=== PATIENT | female | born 1975 | race Two or more races ===

== ENCOUNTER 2017-08-21 23:15 | Emergency (ER) | payer MEDICAID ==
[~2017-08-21] VITALS: Ht 165.1 cm; Wt 85.7 kg
[2017-08-22 01:01] VITALS: BP 166/93
[2017-08-22 01:40] LABS: Mean Corpuscular Hemoglobin 20.2 pg (28.0-32.0); Mean Corpuscular Hgb Conc. 30.9 g/dL (32.0-36.0); Mean Corpuscular Volume 65.6 fL (80.0-100.0); Platelet Count (auto) 406 10^3/uL (140-450); White Blood Cell 14.5 10^3/uL (4.4-10.8)
[2017-08-22 01:42] LABS: Basophils # (auto) 0.1 uL; Basophils % (auto) 0.6 % (0.0-2.0); Eosinophils # (auto) 0.1 uL; Eosinophils % (auto) 0.5 % (0.0-7.0); Lymphocytes # (auto) 2.2 uL; Lymphocytes % (auto) 15.1 % (10.0-50.0); Monocytes # (auto) 0.7 uL; Monocytes % (auto) 4.9 % (0.0-12.0); Neutrophils # (auto) 11.4 uL; Neutrophils % (auto) 78.9 % (37.0-80.0); Nucleated Red Blood Cells % 0.3 %; Red Blood Cells 6.41 10^6/uL (4.0-5.20); Red Cell Distribution Width 17.8 % (11.8-14.3)
[2017-08-22 02:00] LABS: Bilirubin, Total 0.9 mg/dL (0.2-1.0); Total Protein 9.3 g/dL (6.4-8.2)
== END 2017-08-22 08:56 | disposition left against medical advice (07) ==
LOC: ER 23:17
DX: R11.2 Nausea with vomiting, unspecified (principal); Z53.21 Procedure and treatment not carried out due to patient leaving prior to being seen by health care provider
CPT/HCPCS: 36415; 80053; 82962; 85025

== ENCOUNTER 2018-09-14 13:20 | Emergency (ER) | payer MEDICAID ==
[~2018-09-14] VITALS: Ht 167.6 cm; Wt 74.8 kg
[2018-09-14 13:25] VITALS: BP 177/82
== END 2018-09-14 14:17 | disposition home or self-care (01) ==
LOC: ER 13:31
DX: S60.521A Blister (nonthermal) of right hand, initial encounter (principal); E11.9 Type 2 diabetes mellitus without complications; I10 Essential (primary) hypertension; F17.210 Nicotine dependence, cigarettes, uncomplicated; W22.8XXA Striking against or struck by other objects, initial encounter; Y93.89 Activity, other specified; Y92.092 Bedroom in other non-institutional residence as the place of occurrence of the external cause; Y99.8 Other external cause status
CPT/HCPCS: 10060

== ENCOUNTER 2018-10-29 15:38 | Inpatient (IN) | payer MEDICAID ==
[~2018-10-29] VITALS: Ht 165.1 cm; Wt 96.4 kg
[2018-10-29] MEDS ORDERED: SODIUM CHLORIDE 0.9% 500 ML IVB ONE (16:09)
[2018-10-29] MEDS ORDERED: ONDANSETRON HCL 4 MG/2 ML VIAL IV ONE (16:15)
[2018-10-29] MEDS ORDERED: MORPHINE SULFATE 4 MG/ML SYR/VIAL IV ONE (16:15)
[2018-10-29 16:33] LABS: Basophils # (auto) 0 uL; Eosinophils # (auto) 0.1 uL; Neutrophils # (auto) 6.6 uL
[2018-10-29 16:35] LABS: Basophils % (auto) 0.4 % (0.0-2.0); Hematocrit 33.6 % (36.0-46.0); Hemoglobin 10.3 g/dL (12.2-16.2); Lymphocytes # (auto) 1.4 uL; Lymphocytes % (auto) 16.7 % (10.0-50.0); Mean Corpuscular Hemoglobin 19.4 pg (28.0-32.0); Mean Corpuscular Hgb Conc. 30.6 g/dL (32.0-36.0); Mean Corpuscular Volume 63.5 fL (80.0-100.0); Monocytes # (auto) 0.5 uL; Monocytes % (auto) 6.1 % (0.0-12.0); Neutrophils % (auto) 75.8 % (37.0-80.0); Nucleated Red Blood Cells % 0.1 %; Platelet Count (auto) 294 10^3/uL (140-450); Red Blood Cells 5.28 10^6/uL (4.0-5.20); Red Cell Distribution Width 18.9 % (11.8-14.3); White Blood Cell 8.7 10^3/uL (4.4-10.8)
[2018-10-29 18:45] LABS: Alanine Aminotransferase 26 U/L (13-56); Alkaline Phosphatase 111 U/L (45-117); Anion Gap 8 (5-15); Aspartate Aminotransferase 15 U/L (15-37); BUN/Creatinine Ratio 15.7; Blood Urea Nitrogen 11 mg/dL (7-18); Calcium 8.9 mg/dL (8.5-10.1); Carbon Dioxide 22 mmol/L (21-32); Chloride 105 mmol/L (98-107); GFR African American 119 mL/min; GFR Non-African American 98 mL/min; Glucose 214 mg/dL (74-106); Sodium 135 mmol/L (136-145)
[2018-10-29 18:46] LABS: Albumin 3.5 g/dL (3.4-5.0); Amylase 48 U/L (25-115); Bilirubin, Total 0.6 mg/dL (0.2-1.0); Lipase 105 U/L (73-393); Magnesium 2.1 mg/dL (1.6-2.6); Total Protein 8.2 g/dL (6.4-8.2)
[2018-10-29] MEDS ORDERED: ACETAMINOPHEN 500 MG TAB PO PRN (23:00)
[2018-10-29] MEDS ORDERED: ONDANSETRON HCL 4 MG/2 ML VIAL IV PRN (23:00)
[2018-10-29 23:39] LABS: Urine Bacteria FEW /hpf (None Seen); Urine Blood Negative /uL (Negative); Urine Mucus FEW (None Seen); Urine Specific Gravity 1.018 (1.001-1.035); Urine WBC <1 /hpf (0 - 5)
[2018-10-30] VITALS (7 sets, daily range): BP systolic 90–158; BP diastolic 53–79
[2018-10-30] MEDS ORDERED: ONDANSETRON HCL 4 MG/2 ML VIAL IV PRN
[2018-10-30] MEDS ORDERED: ACETAMINOPHEN 500 MG TAB PO PRN
[2018-10-30] MEDS ORDERED: cefTRIAXone 1GM/50ML D5W 50 ML IV ONE
[2018-10-30] MEDS ORDERED: HYDROcodone-ACET 5/325MG TAB PO PRN (00:15)
[2018-10-30] MEDS ORDERED: DEXTROSE (50%) 50ML SYRG IV PRN (00:15)
[2018-10-30] MEDS: SODIUM CHLORIDE 0.9% 1,000 ML IV SCH ×2 (00:15→12:51)
[2018-10-30] MEDS ORDERED: VANCOMYCIN PER PHARMACY 0 MG IV SCH (00:15)
[2018-10-30] MEDS ORDERED: VANCOMYCIN 1GM/250ML 250 ML IV ONE (01:00)
--- NOTE | 2018-10-30 02:31 | NUR ---
MS admit from [facility] admitted to tele/MS. Patient oriented to ARVIND HERNÁNDEZ, RN primary RN, unit, room, bed, and unit policies regarding patient care and visiting hours. Patient weighed by bedscale and encouraged to call if they need something. All questions and concerns addressed, patient verbalized understanding. Safety maintained with bed rails upx2, locked and in lowest position with call leal within reach.
--- NOTE | 2018-10-30 03:00 | NUR ---
MED REC Patient states she takes a medication for her kidneys, unable to recall name or dose of medication. Insulin lispro and insulin glargine pens collected, will send to pharmacy.
[2018-10-30] MEDS ORDERED: INSU100I27 SC (03:36)
[2018-10-30] MEDS ORDERED: INSU1INJ19 SC (03:36)
[2018-10-30] MEDS: InsuLIN REG 1unit/0.01ml Soln (100units/ml) SC SCH ×3 (06:31→18:13)
[2018-10-30] MEDS: ACCU-CHEK COMFORT CURVE STRIP VI SCH ×3 (06:31→18:13)
[2018-10-30 06:49] LABS: Basophils # (auto) 0 uL; Eosinophils # (auto) 0.1 uL; Lymphocytes # (auto) 1.9 uL; Lymphocytes % (auto) 27.5 % (10.0-50.0); Mean Corpuscular Hemoglobin 19.6 pg (28.0-32.0); Mean Corpuscular Hgb Conc. 30.8 g/dL (32.0-36.0); Monocytes # (auto) 0.5 uL; Neutrophils # (auto) 4.3 uL; White Blood Cell 6.8 10^3/uL (4.4-10.8)
[2018-10-30 06:52] LABS: Basophils % (auto) 0.3 % (0.0-2.0); Eosinophils % (auto) 1.7 % (0.0-7.0); Hematocrit 30.6 % (36.0-46.0); Hemoglobin 9.4 g/dL (12.2-16.2); Mean Corpuscular Volume 63.7 fL (80.0-100.0); Neutrophils % (auto) 62.5 % (37.0-80.0); Platelet Count (auto) 247 10^3/uL (140-450); Red Cell Distribution Width 19.3 % (11.8-14.3)
[2018-10-30 07:01] LABS: Albumin 2.8 g/dL (3.4-5.0); BUN/Creatinine Ratio 14.9; Calcium 7.8 mg/dL (8.5-10.1); Potassium 3.7 mmol/L (3.5-5.1)
[2018-10-30 07:04] LABS: Bilirubin, Total 0.4 mg/dL (0.2-1.0); Total Protein 6.6 g/dL (6.4-8.2)
--- NOTE | 2018-10-30 07:08 | NUR ---
Closing Shift Note Endorsed care to day shift RN Eric. Pt resting in bed, no s/s distress.
--- NOTE | 2018-10-30 07:30 | NUR ---
Opening Shift Note Assumed care of patient, awake and alert. No S/S of distress/SOB or pain. Instructed on POC and to call for assist PRN, will continue to monitor for changes Q1hr and PRN.
[2018-10-30] MEDS ORDERED: PNEUMOCOCCAL VACC POLYS 25 MCG/0.5 ML VIAL IM ONE (10:00)
[2018-10-30] MEDS ORDERED: VANCOMYCIN 1,250 MG in D5W 5% 250 ML IV SCH (13:00)
[2018-10-30 15:26] LABS: % Iron Saturation 2.7 % (15-50)
--- NOTE | 2018-10-30 18:55 | NUR ---
AMA Note [facility] states they want to leave the hospital Against Medical Advice (AMA). Patient encouraged to stay for further treatment/stabilization. Charge nurse Giovanna notified of patient's wishes. Patient advised of the risks leaving AMA. Patient verbalized understanding. Patient encouraged to return to the ER if symptoms do not improve or worsen.
[2018-10-30] MEDS ORDERED: cefTRIAXone 1GM/50ML D5W 50 ML IV SCH (22:00)
== END 2018-10-30 18:45 | disposition left against medical advice (07) | DRG 720 ==
LOC: ER 15:41 → OVERFLOW 10-30 00:02 → EAST 10-30 02:31
PROVIDERS: ADMIT Nurse Practitioner Family; ATTEND Internal Medicine
DX: A41.9 Sepsis, unspecified organism (principal); E11.21 Type 2 diabetes mellitus with diabetic nephropathy; E66.01 Morbid (severe) obesity due to excess calories; K76.0 Fatty (change of) liver, not elsewhere classified; N10 Acute pyelonephritis; D50.9 Iron deficiency anemia, unspecified; F17.210 Nicotine dependence, cigarettes, uncomplicated; E11.22 Type 2 diabetes mellitus with diabetic chronic kidney disease; N18.9 Chronic kidney disease, unspecified; Z53.21 Procedure and treatment not carried out due to patient leaving prior to being seen by health care provider; I12.9 Hypertensive chronic kidney disease with stage 1 through stage 4 chronic kidney disease, or unspecified chronic kidney disease; N92.0 Excessive and frequent menstruation with regular cycle; Z98.51 Tubal ligation status; Z23 Encounter for immunization; Z68.35 Body mass index [BMI] 35.0-35.9, adult
CPT/HCPCS: 36415; 74176; 76830; 76856; 80053; 81001; 81025; 82150; 82962; 83036; 83540; 83550; 83690; 83735; 84484; 85025; 87086; 93005; 94761; 96361; 96374; 96375; G0378; J0696; J1815; J2405; J7060